=== PATIENT | male | born 1990 | race Caucasian/White ===

== ENCOUNTER 2017-03-21 20:04 | Emergency (ER) | payer SELFPAY ==
[~2017-03-21] VITALS: Ht 170.2 cm; Wt 77.3 kg
[2017-03-21 21:48] VITALS: BP 127/80
[2017-03-21 22:36] LABS: BASOPHILS % 0.3 % (0.0-2.0); EOSINOPHILS % 1.5 % (0.0-5.0); HEMATOCRIT. 42.3 % (42.0-52.0); HEMOGLOBIN. 14.1 g/dL (14.0-18.0); LYMPHOCYTES % 31.7 % (20.0-50.0); MEAN CORPUSCULAR HEMOGLOBIN 27.3 pg (28.0-32.0); MEAN CORPUSCULAR VOLUME 81.9 fL (80.0-94.0); MEAN PLATELET VOLUME 8.6 fl (7.4-10.4); MONOCYTES % 11.5 % (2.0-8.0); PLATELET 217 x1000/uL (130-400); RED BLOOD CELL COUNT 5.16 mill/uL (4.7-6.1)
[2017-03-21 22:43] LABS: CHLORIDE 105 mEq/L (98-107)
[2017-03-21 22:44] LABS: INR 1.1; PROTHROMBIN TIME 11.4 sec (9.4-11.6)
[2017-03-21 22:49] LABS: CARBON DIOXIDE 27 mEq/L (21-32)
== END 2017-03-21 23:40 | disposition home or self-care (01) ==
LOC: ER 20:04
DX: R53.1 Weakness (principal); R56.9 Unspecified convulsions; F90.9 Attention-deficit hyperactivity disorder, unspecified type; F12.10 Cannabis abuse, uncomplicated
CPT/HCPCS: 36415; 80053; 85025; 85610; 99284; Z7610